=== PATIENT | female | born 1965 ===

== ENCOUNTER 2022-11-15 05:47 | Day surgery (SDC) | payer OTHER ==
[~2022-11-15] VITALS: Ht 165.1 cm; Wt 83.9 kg
[~2022-11-15 05:47] MED LIST: SYNTHROID50 MCG PO
[2022-11-15] MEDS ORDERED: MORGIDOX100 MG PO (08:36)
[2022-11-15] MEDS ORDERED: NAPR500T14 PO (08:36)
== END 2022-11-15 13:50 | disposition home or self-care (01) ==
LOC: CIR.AMB 05:47
PROVIDERS: ATTEND Obstetrics & Gynecology
DX: N84.0 Polyp of corpus uteri (principal); N95.0 Postmenopausal bleeding; N88.2 Stricture and stenosis of cervix uteri; D25.0 Submucous leiomyoma of uterus; Z20.822 Contact with and (suspected) exposure to COVID-19